=== PATIENT | female | born 1990 | race African-American/Black ===

== ENCOUNTER 2020-02-29 20:22 | Observation (INO) | payer MEDICAID | END 2020-02-29 22:08 | disposition home or self-care (01) | DRG 566 | LOC: LDRP 20:22 | PROVIDERS: ADMIT Specialist; ATTEND Specialist | DX: O26.893 Other specified pregnancy related conditions, third trimester (principal); M54.5 Low back pain; Z3A.37 37 weeks gestation of pregnancy | CPT/HCPCS: 59025; 81002; G0378 ==

== ENCOUNTER 2020-03-06 23:00 | Inpatient (IN) | payer MEDICAID ==
[~2020-03-06] VITALS: Ht 157.5 cm; Wt 77.6 kg
[2020-03-06] MEDS ORDERED: LACT. RINGERS/OXYTOCIN 20UNITS 1,000 ML IV SCH (23:36)
[2020-03-06] MEDS: LACTATED RINGER'S 1,000 ML IV SCH (23:36)
[2020-03-06] MEDS ORDERED: miSOPROStol 50 MCG per PRE-CUT 1/2 TAB PO PRN ×2 (23:45)
[2020-03-06] MEDS ORDERED: PHISODERM TOP SOLN 240ML BTL TOP PRN (23:45)
[2020-03-06] MEDS ORDERED: WITCH HAZEL-GLYCERIN PAD TOP PRN (23:45)
[2020-03-06] MEDS ORDERED: DERMOPLAST 60ML BOTTLE TOP PRN (23:45)
[2020-03-06] MEDS ORDERED: LIDOCAINE 2%HCL (LOCAL ANESTH.) INJ 20ML MDV ID ONE (23:45)
[2020-03-07 00:58] LABS: Basophils # (auto) 0 10 ^3/uL (0-0.2); Basophils % (auto) 0.1 % (0.0-2.0); Eosinophils # (auto) 0 10 ^3/uL (0-0.8); Eosinophils % (auto) 0.5 % (0.0-7.0); Hematocrit 37.1 % (36.0-46.0); Hemoglobin 12.6 g/dL (12.2-16.2); Lymphocytes # (auto) 2.4 10 ^3/uL (0.4-5.4); Lymphocytes % (auto) 24.5 % (10.0-50.0); Mean Corpuscular Hemoglobin 29.4 pg (28.0-32.0); Mean Corpuscular Volume 86.5 fL (80.0-100.0); Monocytes # (auto) 0.8 10 ^3/uL (0-1.3); Monocytes % (auto) 8.1 % (0.0-12.0); Neutrophils # (auto) 6.4 10 ^3/uL (1.6-8.6); Neutrophils % (auto) 66.8 % (37.0-80.0); Platelet Count (auto) 119 10^3/uL (140-450); Red Blood Cells 4.28 10^6/uL (4.0-5.20); Red Cell Distribution Width 14.7 % (11.8-14.3); White Blood Cell 9.6 10^3/uL (4.4-10.8)
[2020-03-07 01:11] LABS: Albumin 2.6 g/dL (3.4-5.0); Calcium 8.5 mg/dL (8.5-10.1); Potassium 3.6 mmol/L (3.5-5.1)
[2020-03-07 01:12] LABS: INR 0.99 (0.9-1.15); Partial Thromboplastin Time 27.4 sec (23.64-32.05)
[2020-03-07 01:21] LABS: Bilirubin, Total 0.5 mg/dL (0.2-1.0); Total Protein 6.4 g/dL (6.4-8.2); Uric Acid 3.1 mg/dL (2.6-6.0)
[2020-03-07] MEDS ORDERED: ALBU2TAB4 IN (02:32)
[2020-03-07] MEDS ORDERED: PREN-96 PO (02:32)
[2020-03-07] MEDS: LACTATED RINGER'S 1,000 ML IV SCH ×2 (02:36→14:44)
[2020-03-07] MEDS: ceFAZolin 1GM/50ML 50 ML IV SCH ×2 (11:18→19:53)
[2020-03-07] MEDS ORDERED: BUTORPHANOL TARTRATE 2 MG/1 ML VIAL IV PRN (12:45)
[2020-03-07] MEDS ORDERED: PROMETHAZINE HCL 25 MG/ML 1ML IV PRN (12:45)
[2020-03-07] MEDS ORDERED: LACT. RINGERS/OXYTOCIN 20UNITS 1,000 ML IV SCH (17:01)
[2020-03-07] MEDS ORDERED: LACTATED RINGER'S 1,000 ML IV ONE (17:25)
[2020-03-07] MEDS ORDERED: NALOXONE HCL 0.4 MG/ML VIAL IV ONE (17:30)
[2020-03-07] MEDS ORDERED: LIDOCAINE HCL 2 %PF INJ 10ML AMP IJ ONE (17:30)
[2020-03-07] MEDS ORDERED: ePHEDrine SULFATE 50 MG/ML AMP IV ONE (17:30)
[2020-03-07] MEDS ORDERED: fentaNYL CITRATE 100 MCG/2 ML VL EPI ONE (17:30)
[2020-03-07] MEDS: fentaNYL 200mCg/100ml W ROPIVA 100 ML EPI SCH (20:37)
[2020-03-08] VITALS (11 sets, daily range): BP systolic 111–135; BP diastolic 74–91
[2020-03-08] MEDS: LACTATED RINGER'S 1,000 ML IV SCH ×2 (01:01→07:35)
[2020-03-08] MEDS: ceFAZolin 1GM/50ML 50 ML IV SCH ×2 (04:03→11:49)
[2020-03-08] MEDS: fentaNYL 200mCg/100ml W ROPIVA 100 ML EPI SCH ×2 (05:28→12:00)
[2020-03-08] MEDS ORDERED: LIDOCAINE HCL 2 %PF INJ 10ML AMP IJ ONE (10:45)
[2020-03-08] MEDS ORDERED: ePHEDrine SULFATE 50 MG/ML AMP IV ONE (10:45)
[2020-03-08] MEDS ORDERED: NALOXONE HCL 0.4 MG/ML VIAL IV ONE (10:45)
[2020-03-08] MEDS ORDERED: fentaNYL CITRATE 100 MCG/2 ML VL IV ONE (10:45)
[2020-03-08] MEDS ORDERED: TERBUTALINE SULFATE 1 MG/ML 1ML VIAL SC ONE ×2 (12:52→12:55)
[2020-03-08] MEDS ORDERED: OXYTOCIN 10UNIT/ML 1ML VIAL IV ONE (13:15)
[2020-03-08] MEDS ORDERED: PHENYLEPHRINE HCL 10 MG/ML VL IV ONE (13:15)
[2020-03-08] MEDS ORDERED: MIDAZOLAM HCL 1MG/1ML-2 ML VIAL ONE (13:19)
[2020-03-08] MEDS ORDERED: fentaNYL CITRATE 100 MCG/2 ML VL ONE (13:19)
[2020-03-08] MEDS ORDERED: MORPHINE SULF(PF) 0.5MG/ML 10ML VIAL ONE (13:19)
[2020-03-08] MEDS ORDERED: TETRACAINE 1% INJ 2 ML VIAL IJ ONE (13:21)
[2020-03-08] MEDS ORDERED: diphenhdrAMINE HCL 50 MG/1 ML VL ONE (14:30)
[2020-03-08] MEDS ORDERED: NALOXONE HCL 0.4 MG/ML VIAL IV PRN (14:30)
[2020-03-08] MEDS ORDERED: HYDROmorphone HCL 2 MG/ML VL IV PRN ×2 (14:30→15:00)
[2020-03-08] MEDS ORDERED: LABETALOL HCL 5 MG/ML 4ML SYRINGE IV PRN (14:30)
[2020-03-08] MEDS ORDERED: diphenhdrAMINE HCL 50 MG/1 ML VL IV PRN (14:30)
[2020-03-08] MEDS ORDERED: MIDAZOLAM HCL 1MG/1ML-2 ML VIAL IV PRN (14:30)
[2020-03-08] MEDS ORDERED: ePHEDrine SULFATE 50 MG/ML AMP IV PRN (14:30)
[2020-03-08] MEDS ORDERED: DexAMETHasone SOD PHOS 10MG/1ML VIAL INJ IV PRN (14:30)
[2020-03-08] MEDS ORDERED: NALBUPHINE HCL 10 MG/1ml INJECTION SUBCUT ONE (14:30)
[2020-03-08] MEDS ORDERED: ONDANSETRON HCL 4 MG/2 ML VIAL IV PRN ×2 (14:30→15:00)
[2020-03-08] MEDS ORDERED: LACTATED RINGER'S 1,000 ML IV SCH (14:49)
[2020-03-08] MEDS ORDERED: ACETAMINOPHEN IV 1000 MG/100ML (10MG/ML) IV PRN (15:00)
[2020-03-08] MEDS ORDERED: ceFAZolin 1GM/50ML 50 ML IV SCH (15:00)
--- NOTE | 2020-03-08 15:45 | NUR ---
Post Op for LDRP: Received patient from PACU via bed to room 107B. Patient A/A/Ox4, abdominal binder and bilateral SCD's are in place, IV fluids placed on pump and infusing per order, incisional site dressing clean/dry/intact and Cintron Catheter to gravity draining clear yellow urine. Incentive Spirometer at bedside and instruction on proper use with return demonstration done by patient.
--- NOTE | 2020-03-08 16:00 | NUR ---
Teaching: Reviewed information in [employer] booklet with patient. Discussed benefits of and risks associated with not . Discussed different positions, proper latch, feeding cues, and baby-led . Provided information of medication side effects related to . All questions and concerns addressed at this time. Patient verbalized understanding of information.
[2020-03-08] MEDS: KETOROLAC TROMETH 30 MG/ML 1ML VIAL IV PRN (19:33)
--- NOTE | 2020-03-08 22:30 | NUR ---
MOB request to use the electronic breast pump. Pump and all supplies given to MOB with instructions and return demonstration. Pt verbalized understanding.
[2020-03-09] VITALS (10 sets, daily range): BP systolic 95–126; BP diastolic 60–77
[2020-03-09] MEDS: ceFAZolin 1GM/50ML 50 ML IV SCH ×3 (00:06→16:23)
[2020-03-09] MEDS: KETOROLAC TROMETH 30 MG/ML 1ML VIAL IV PRN (02:53)
--- NOTE | 2020-03-09 04:20 | NUR ---
Ambulation: Patient OOB with standby assistance by RN. Patient ambulated to bedside chair with steady gait. Pericare performed by RN and teaching provided to the patient. Clean gown provided and bed linen changed. Patient ambulated back to bed with steady gait and no distress noted.
[2020-03-09 07:21] LABS: Basophils # (auto) 0 10 ^3/uL (0-0.2); Basophils % (auto) 0.1 % (0.0-2.0); Eosinophils # (auto) 0.1 10 ^3/uL (0-0.8); Eosinophils % (auto) 0.6 % (0.0-7.0); Hematocrit 31.2 % (36.0-46.0); Hemoglobin 10.7 g/dL (12.2-16.2); Lymphocytes # (auto) 1.4 10 ^3/uL (0.4-5.4); Mean Corpuscular Hemoglobin 29.8 pg (28.0-32.0); Mean Corpuscular Hgb Conc. 34.1 g/dL (32.0-36.0); Mean Corpuscular Volume 87.2 fL (80.0-100.0); Monocytes # (auto) 1.3 10 ^3/uL (0-1.3); Monocytes % (auto) 9.2 % (0.0-12.0); Neutrophils # (auto) 11.2 10 ^3/uL (1.6-8.6); Neutrophils % (auto) 80.1 % (37.0-80.0); Platelet Count (auto) 112 10^3/uL (140-450); Red Blood Cells 3.58 10^6/uL (4.0-5.20); Red Cell Distribution Width 15.2 % (11.8-14.3); White Blood Cell 13.9 10^3/uL (4.4-10.8)
[2020-03-09] MEDS ORDERED: HYDROcodone-ACET 5/325MG TAB PO PRN (08:15)
[2020-03-09] MEDS ORDERED: SIMETHICONE 80 MG CHEWABLE TABLET PO PRN (08:15)
[2020-03-09] MEDS: DOCUSATE SOD 100 MG CAP PO SCH ×2 (11:12→21:27)
[2020-03-09] MEDS: HYDROcodone-ACET 5/325MG TAB PO PRN ×2 (11:13→16:24)
[2020-03-09] MEDS: IBUPROFEN 800 MG TAB PO PRN ×2 (13:51→21:26)
--- NOTE | 2020-03-09 14:00 | NUR ---
CALLED DR. OWENS AND READ TOTAL AND DIRECT BILIRUBIN RESULTS AND 24 HOUR WEIGHT LOSS IS 10.[address] OWENS OK NO NEW ORDERS GIVEN.
[2020-03-10] MEDS: HYDROcodone-ACET 5/325MG TAB PO PRN ×4 (01:41→21:49)
[2020-03-10 03:00] VITALS: BP 124/77
[2020-03-10] MEDS: IBUPROFEN 800 MG TAB PO PRN ×2 (05:33→17:33)
[2020-03-10 07:10] VITALS: BP 114/74
[2020-03-10 10:40] VITALS: BP 116/71
[2020-03-10] MEDS: DOCUSATE SOD 100 MG CAP PO SCH ×2 (10:43→21:49)
--- NOTE | 2020-03-10 11:55 | NUR ---
report given to George MACIAS RN
[2020-03-10 15:05] VITALS: BP 132/75
--- NOTE | 2020-03-10 16:10 | NUR ---
DR RAHMAN MADE AWARE OF NO URINE OUTPUT FOR THE LAST HOUR AND HALF, ORDERS RECEIVED TO FLUSH THE KENNEDY WITH 10 CC, ORDERS CARRIED OUT, KENNEDY FLUSHED, PT TOLERATED WELL Addendum: 03/10/20 at 1840 by Jerry Ren RN WRONG PATIENT
--- NOTE | 2020-03-10 17:55 | NUR ---
PT COMPLAINT OF SWELLING FEET AND UNABLE TO AMBULATE AT THIS TIME, DR RAHMAN MADE AWARE OF PT REQUESTING US OF BOTH LEGS ORDERS RECEIVED AND CARRIED OUT
[2020-03-10] MEDS ORDERED: TETANUS-DIPTH-ACEL PERTUSSIS 0.5ML SYR Tdap IM ONE (18:45)
[2020-03-10 19:00] VITALS: BP 107/73
--- NOTE | 2020-03-10 19:12 | NUR ---
Pt offered the TDAP vaccine at this time by this RN. Pt has changed her mind and refusing TDAP vaccine. Primary RN made aware.
[2020-03-10] MEDS ORDERED: BISACODYL 10 MG RECT SUPP PR PRN (21:00)
[2020-03-10 23:00] VITALS: BP 109/76
--- NOTE | 2020-03-10 23:46 | NUR ---
IV removal IV DC'd with clean technique, catheter fully intact. Pressure dressing applied to site. Patient tolerated well. NOTE:
[2020-03-11] MEDS: IBUPROFEN 800 MG TAB PO PRN (02:08)
[2020-03-11 03:00] VITALS: BP 122/83
[2020-03-11 07:00] VITALS: BP 134/71
--- NOTE | 2020-03-11 07:00 | NUR ---
PIE ICER MACHINE AT BEDSIDE. ALDO REMOVED. PT TOLERATED WELL. INCISION IS CLEAN DRY AND INTACT.
--- NOTE | 2020-03-11 07:45 | NUR ---
Discharge: Discharge instructions given as ordered. Pt encouraged to follow up with [facility] as instructed. All questions and concerns addressed. Patient verbalized understanding. Medication reconciliation completed and copy given to patient. All required/requested vaccines given and copies of vaccinations given to patient. Patient encouraged to prepare to depart unit.
[2020-03-11 08:35] VITALS: BP 134/71
--- NOTE | 2020-03-11 08:35 | NUR ---
Discharge: Patient taken to vehicle via wheelchair with all personal belongings, accompanied by staff and family member. No distress noted at time of departure, no adverse changes in status since initial assessment.
[2020-03-11 12:34] LABS: RPR Non Reactive (Non Reactive)
--- NOTE | 2020-03-12 13:34 | NUR ---
PT calls unit and reports that she took her RX to be filled and the pharmacist reports that the RX is unable to be filled. Obtained PTs number and will call her back . Dr Singh arrives on unit informed him of issue. New RX obtained, called PT to come to hospital to pickling grader new RX and that the RX she has in her possession must be returned. PT reports understanding. 1320 New RX given to PT, old RX rec'd by this RN. RX voided.
== END 2020-03-11 08:35 | disposition home or self-care (01) | DRG 540 ==
LOC: LDRP 23:00 → OBSVTOIN 23:00 → LDRP 03-08 15:16
PROVIDERS: ADMIT Specialist; ATTEND Specialist
PROC: 10D00Z1 Extraction of Products of Conception, Low, Open Approach (ICD-10-PCS; principal; 2020-03-08 13:26)
DX: O62.0 Primary inadequate contractions (principal); O99.52 Diseases of the respiratory system complicating childbirth; J45.909 Unspecified asthma, uncomplicated; Z37.0 Single live birth; Z3A.38 38 weeks gestation of pregnancy; R71.0 Precipitous drop in hematocrit
CPT/HCPCS: 36415; 59025; 59200; 62282; 80053; 81002; 84112; 84550; 85025; 85610; 85730; 86592; 86850; 86900; 86901; 87340; 90715; 93970; 94762; 96360; 96361; 96365; 96366; 96374; 96375; G0378; J0131; J0690; J1885; J2250; J2590

== ENCOUNTER 2023-11-12 13:04 | Emergency (ER) | payer MEDICAID ==
[~2023-11-12] VITALS: Ht 162.6 cm; Wt 87.0 kg
[~2023-11-12 13:04] MED LIST: ALBU2TAB11 IN; PREN-96 PO
[2023-11-12 13:08] VITALS: TEMP 98.3
[2023-11-12 13:13] VITALS: BP 131/81; PULSE 94; RESP 18; O2SAT 97
== END 2023-11-12 17:23 | disposition left against medical advice (07) ==
LOC: ER 13:04
DX: R05.9 Cough, unspecified (principal); J02.9 Acute pharyngitis, unspecified; R09.81 Nasal congestion; Z53.21 Procedure and treatment not carried out due to patient leaving prior to being seen by health care provider